=== PATIENT | female | born 1965 | race Caucasian/White ===

== ENCOUNTER 2017-02-19 18:32 | Emergency (ER) | payer MEDICARE, MEDICAID ==
[~2017-02-19] VITALS: Ht 160 cm; Wt 139.0 kg
[~2017-02-19 18:32] MED LIST: ACET-75 PO; ALBU8.5H8 IH; AZI25OT PO; BACL10TA PO; DOCU100C40 PO; ESOM20CA PO; FERR-106 PO; FLUT16SP26 BOTHNARES; FLUT1AER; FORM20VI NEB; FURO-149 PO; GABA600T2 PO; INSU100V36 SQ; LANTUS SQ; LEVO50TA8 PO; LEVO750T46 PO; LISI2.5T2 PO; LORA10TA61 PO; METF10002 PO; METO25TA6 PO; POTA10CA44 PO; PRED20TA PO; SIMV20TA PO
[2017-02-19 19:02] LABS: BASOPHILS % (AUTO) 0.3 % (0-1); EOSINOPHILS # (AUTO) 0.2 X10'3 (0-0.9); EOSINOPHILS % (AUTO) 1.7 % (0-6); HEMATOCRIT 40.3 % (35.0-45.0); HEMOGLOBIN 13.4 g/dl (12.0-16.0); LYMPHOCYTES # (AUTO) 2.6 X10'3 (1.1-4.8); LYMPHOCYTES % (AUTO) 29.1 % (21-51); MEAN CORPUSCULAR HEMOGLOBIN 27.7 PG (27.0-31.0); MEAN CORPUSCULAR HGB CONC 33.3 % (33.0-36.5); MEAN CORPUSCULAR VOLUME 83.3 FL (78-98); MONOCYTES # (AUTO) 0.8 X10'3 (0-0.9); MONOCYTES % (AUTO) 9.4 % (2-12); NEUTROPHILS # (AUTO) 5.4 X10'3 (1.8-7.7); NEUTROPHILS % (AUTO) 59.5 % (42-75); PLATELET COUNT 353 X10'3 (140-440); RED BLOOD COUNT 4.84 X10'6 (4.20-5.60); RED CELL DISTRIBUTION WIDTH 14.3 % (11.5-14.5)
[2017-02-19 19:14] LABS: INR 0.9 INR; PARTIAL THROMBOPLASTIN TIME 26 SECONDS (22-32); PROTHROMBIN TIME 9.4 SECONDS (9.0-12.0)
[2017-02-19 19:17] LABS: ALANINE AMINOTRANSFERASE 30 U/L (12-78); ALBUMIN 3.9 G/DL (3.4-5.0); ALKALINE PHOSPHATASE 95 IU/L (46-116); ANION GAP 10 (8-16); BILIRUBIN,TOTAL 0.3 MG/DL (0.1-1.0); BLOOD UREA NITROGEN 9 MG/DL (7-18); BUN/CREATININE RATIO 10.8 (6.6-38.0); CALCIUM 9.4 MG/DL (8.5-10.1); CHLORIDE 104 MMOL/L (99-107); CREATININE 0.83 MG/DL (0.40-0.90); SODIUM 143 MMOL/L (135-145); eGFR 73 ML/MIN
[2017-02-19 19:32] LABS: ASPARTATE AMINO TRANSFERASE 20 U/L (10-37)
[2017-02-19 19:33] LABS: GLUCOSE 145 MG/DL (70-104); POTASSIUM 3.8 MMOL/L (3.5-5.1); TOTAL PROTEIN 7.8 G/DL (6.4-8.2)
[2017-02-19] MEDS ORDERED: AZIT-63 PO (21:07)
[2017-02-19] MEDS ORDERED: PRED20TA PO (21:07)
[2017-02-19] MEDS ORDERED: ipratropium/albuterol 3ml nebule NEB ONE (21:10)
[2017-02-19] MEDS ORDERED: predniSONE 20 mg tablet PO ONE (21:10)
[2017-02-19] MEDS ORDERED: azithromycin 250mg tablet PO ONE (21:10)
[2017-02-19 21:59] VITALS: BP 154/65
== END 2017-02-19 22:29 | disposition home or self-care (01) ==
LOC: ER 18:32
DX: J40 Bronchitis, not specified as acute or chronic (principal); R60.0 Localized edema; J44.9 Chronic obstructive pulmonary disease, unspecified; I10 Essential (primary) hypertension; I25.10 Atherosclerotic heart disease of native coronary artery without angina pectoris; K21.9 Gastro-esophageal reflux disease without esophagitis; E11.9 Type 2 diabetes mellitus without complications; E78.00 Pure hypercholesterolemia, unspecified; C53.9 Malignant neoplasm of cervix uteri, unspecified; I25.2 Old myocardial infarction; Z86.73 Personal history of transient ischemic attack (TIA), and cerebral infarction without residual deficits; Z90.5 Acquired absence of kidney; Z79.4 Long term (current) use of insulin; Z79.84 Long term (current) use of oral hypoglycemic drugs; Z79.899 Other long term (current) drug therapy; Z88.6 Allergy status to analgesic agent
CPT/HCPCS: 36415; 71045; 80053; 84484; 85025; 85610; 85730; 93005; 94640; 94760; 99285; J7512

== ENCOUNTER 2018-03-13 11:13 | Emergency (ER) | payer MEDICARE, MEDICAID ==
[~2018-03-13] VITALS: Ht 160 cm; Wt 145.9 kg
[~2018-03-13 11:13] MED LIST changes: -FERR-106 PO; +FERR325T32 PO; +GABA600T13 PO; -GABA600T2 PO; +METF-438 PO; -METF10002 PO
[2018-03-13 11:45] LABS: BASOPHILS % (AUTO) 0.2 % (0-1); EOSINOPHILS # (AUTO) 0.2 X10'3 (0-0.9); EOSINOPHILS % (AUTO) 2.2 % (0-6); HEMATOCRIT 38.6 % (35.0-45.0); HEMOGLOBIN 12.7 g/dl (12.0-16.0); LYMPHOCYTES # (AUTO) 2.3 X10'3 (1.1-4.8); MEAN CORPUSCULAR HEMOGLOBIN 27.9 PG (27.0-31.0); MEAN CORPUSCULAR HGB CONC 32.9 % (33.0-36.5); MEAN CORPUSCULAR VOLUME 84.6 FL (78-98); MEAN PLATELET VOLUME 7.1 FL (7.4-10.4); MONOCYTES # (AUTO) 0.7 X10'3 (0-0.9); MONOCYTES % (AUTO) 7.6 % (2-12); NEUTROPHILS # (AUTO) 6.3 X10'3 (1.8-7.7); PLATELET COUNT 326 X10'3 (140-440); RED BLOOD COUNT 4.56 X10'6 (4.20-5.60); RED CELL DISTRIBUTION WIDTH 14.4 % (11.5-14.5); WHITE BLOOD COUNT 9.6 X10'3 (4.5-11.0)
[2018-03-13 11:59] LABS: INR 0.9 INR; PARTIAL THROMBOPLASTIN TIME 28 SECONDS (22-32); PROTHROMBIN TIME 9.5 SECONDS (9.0-12.0)
[2018-03-13 12:01] LABS: ALANINE AMINOTRANSFERASE 41 U/L (12-78); ALBUMIN 3.7 G/DL (3.4-5.0); ALBUMIN/GLOBULIN RATIO 0.9 (1.1-1.5); ALKALINE PHOSPHATASE 81 IU/L (46-116); ANION GAP 11 (8-16); ASPARTATE AMINO TRANSFERASE 22 U/L (10-37); BILIRUBIN,TOTAL 0.2 MG/DL (0.1-1.0); BLOOD UREA NITROGEN 19 MG/DL (7-18); BUN/CREATININE RATIO 21.6 (6.6-38.0); CALCIUM 8.7 MG/DL (8.5-10.1); CHLORIDE 102 MMOL/L (99-107); CREATININE 0.88 MG/DL (0.40-0.90); GLUCOSE 149 MG/DL (70-104); POTASSIUM 4.3 MMOL/L (3.5-5.1); SODIUM 143 MMOL/L (135-145); TOTAL CARBON DIOXIDE 29.8 MMOL/L (24-32); TOTAL PROTEIN 7.9 G/DL (6.4-8.2); eGFR 68 ML/MIN
[2018-03-13] MEDS ORDERED: famotidine 20mg tablet PO ONE (12:35)
[2018-03-13] MEDS ORDERED: mag hydrox/Alum hydrox/simeth 30ml oral suspension PO ONE (12:35)
[2018-03-13] MEDS ORDERED: clopidogrel 300mg tablet PO ONE (12:35)
[2018-03-13 13:32] LABS: D-DIMER 0.31 MG/L FEU (0-0.50)
[2018-03-13 15:35] VITALS: BP 168/89
== END 2018-03-13 15:37 | disposition home or self-care (01) ==
LOC: ER 11:13
DX: R07.89 Other chest pain (principal); R06.02 Shortness of breath; R11.0 Nausea; J44.9 Chronic obstructive pulmonary disease, unspecified; I25.10 Atherosclerotic heart disease of native coronary artery without angina pectoris; I25.2 Old myocardial infarction; I10 Essential (primary) hypertension; E78.00 Pure hypercholesterolemia, unspecified; K21.9 Gastro-esophageal reflux disease without esophagitis; E11.9 Type 2 diabetes mellitus without complications; E07.9 Disorder of thyroid, unspecified; Z86.73 Personal history of transient ischemic attack (TIA), and cerebral infarction without residual deficits; Z98.890 Other specified postprocedural states; Z56.0 Unemployment, unspecified; Z88.5 Allergy status to narcotic agent; Z88.6 Allergy status to analgesic agent; Z88.8 Allergy status to other drugs, medicaments and biological substances; Z79.4 Long term (current) use of insulin; Z79.84 Long term (current) use of oral hypoglycemic drugs; Z79.899 Other long term (current) drug therapy
CPT/HCPCS: 36415; 71045; 80053; 84484; 85025; 85379; 85610; 85730; 93005; 99284

== ENCOUNTER 2018-04-28 21:28 | Emergency (ER) | payer MEDICARE, MEDICAID ==
[~2018-04-28] VITALS: Ht 160 cm; Wt 154.8 kg
[2018-04-28 22:10] LABS: BASOPHILS % (AUTO) 0.4 % (0-1); EOSINOPHILS # (AUTO) 0.2 X10'3 (0-0.9); EOSINOPHILS % (AUTO) 2.9 % (0-6); HEMATOCRIT 37.9 % (35.0-45.0); HEMOGLOBIN 12.6 g/dl (12.0-16.0); LYMPHOCYTES # (AUTO) 1.9 X10'3 (1.1-4.8); LYMPHOCYTES % (AUTO) 27.9 % (21-51); MEAN CORPUSCULAR HEMOGLOBIN 28.4 PG (27.0-31.0); MEAN CORPUSCULAR HGB CONC 33.3 g/dL (33.0-36.5); MEAN CORPUSCULAR VOLUME 85.4 FL (78-98); MEAN PLATELET VOLUME 7.2 FL (7.4-10.4); MONOCYTES # (AUTO) 0.6 X10'3 (0-0.9); MONOCYTES % (AUTO) 9.3 % (2-12); NEUTROPHILS % (AUTO) 59.5 % (42-75); PLATELET COUNT 243 X10'3 (140-440); RED BLOOD COUNT 4.44 X10'6 (4.20-5.60); RED CELL DISTRIBUTION WIDTH 14.6 % (11.5-14.5); WHITE BLOOD COUNT 6.8 X10'3 (4.5-11.0)
[2018-04-28 22:15] LABS: ALANINE AMINOTRANSFERASE 36 U/L (12-78); ALBUMIN 3.5 G/DL (3.4-5.0); ALKALINE PHOSPHATASE 113 IU/L (46-116); BLOOD UREA NITROGEN 19 MG/DL (7-18); BUN/CREATININE RATIO 18.8 (6.6-38.0); CHLORIDE 104 MMOL/L (99-107); CREATININE 1.01 MG/DL (0.40-0.90); TOTAL CARBON DIOXIDE 33.7 MMOL/L (24-32); eGFR 58 ML/MIN
[2018-04-28 22:21] LABS: INR 0.9 INR; PARTIAL THROMBOPLASTIN TIME 26 SECONDS (22-32); PROTHROMBIN TIME 9.5 SECONDS (9.0-12.0)
[2018-04-28 22:49] LABS: ALBUMIN/GLOBULIN RATIO 1.1 (1.1-1.5); ANION GAP 4 (8-16); ASPARTATE AMINO TRANSFERASE 21 U/L (10-37); BILIRUBIN,TOTAL 0.2 MG/DL (0.1-1.0); CALCIUM 8.8 MG/DL (8.5-10.1); GLUCOSE 158 MG/DL (70-104); POTASSIUM 4.6 MMOL/L (3.5-5.1); SODIUM 142 MMOL/L (135-145); TOTAL PROTEIN 6.8 G/DL (6.4-8.2)
[2018-04-28] MEDS ORDERED: ipratropium/albuterol 3ml nebule NEB ONE (23:30)
[2018-04-28 23:40] VITALS: BP 129/91
== END 2018-04-28 23:54 | disposition home or self-care (01) ==
LOC: ER 21:28
DX: R06.02 Shortness of breath (principal); R20.2 Paresthesia of skin; I25.10 Atherosclerotic heart disease of native coronary artery without angina pectoris; E78.00 Pure hypercholesterolemia, unspecified; I10 Essential (primary) hypertension; I25.2 Old myocardial infarction; J44.9 Chronic obstructive pulmonary disease, unspecified; K21.9 Gastro-esophageal reflux disease without esophagitis; E11.9 Type 2 diabetes mellitus without complications; Z86.73 Personal history of transient ischemic attack (TIA), and cerebral infarction without residual deficits; Z56.0 Unemployment, unspecified; Z98.890 Other specified postprocedural states; Z79.899 Other long term (current) drug therapy; Z79.4 Long term (current) use of insulin; Z88.6 Allergy status to analgesic agent; Z88.5 Allergy status to narcotic agent; Z91.041 Radiographic dye allergy status
CPT/HCPCS: 36415; 71046; 80053; 83880; 84484; 85025; 85610; 85730; 93005; 94640; 94760; 99284

== ENCOUNTER 2019-04-24 11:25 | Emergency (ER) | payer MEDICARE, MEDICAID ==
[~2019-04-24] VITALS: Ht 165.1 cm; Wt 149.1 kg
[2019-04-24 12:11] LABS: BASOPHILS % (AUTO) 0.2 % (0-1); EOSINOPHILS # (AUTO) 0.2 X10'3 (0-0.9); EOSINOPHILS % (AUTO) 2.2 % (0-6); HEMATOCRIT 40.7 % (35.0-45.0); HEMOGLOBIN 13.2 g/dl (12.0-16.0); LYMPHOCYTES # (AUTO) 1.9 X10'3 (1.1-4.8); LYMPHOCYTES % (AUTO) 19.2 % (21-51); MEAN CORPUSCULAR HEMOGLOBIN 27.4 PG (27.0-31.0); MEAN CORPUSCULAR HGB CONC 32.5 g/dL (33.0-36.5); MEAN CORPUSCULAR VOLUME 84.3 FL (78-98); MEAN PLATELET VOLUME 7.5 FL (7.4-10.4); MONOCYTES # (AUTO) 0.8 X10'3 (0-0.9); MONOCYTES % (AUTO) 7.7 % (2-12); NEUTROPHILS # (AUTO) 6.9 X10'3 (1.8-7.7); NEUTROPHILS % (AUTO) 70.7 % (42-75); PLATELET COUNT 303 X10'3 (140-440); RED BLOOD COUNT 4.83 X10'6 (4.20-5.60); RED CELL DISTRIBUTION WIDTH 13.9 % (11.5-14.5); WHITE BLOOD COUNT 9.8 X10'3 (4.5-11.0)
[2019-04-24 12:26] LABS: ALANINE AMINOTRANSFERASE 54 U/L (12-78); ALBUMIN 3.7 G/DL (3.4-5.0); ALBUMIN/GLOBULIN RATIO 0.9 (1.1-1.5); ALKALINE PHOSPHATASE 72 IU/L (46-116); ANION GAP 3 (8-16); ASPARTATE AMINO TRANSFERASE 51 U/L (10-37); BILIRUBIN,TOTAL 0.3 MG/DL (0.1-1.0); BLOOD UREA NITROGEN 9 MG/DL (7-18); CALCIUM 9.2 MG/DL (8.5-10.1); CHLORIDE 106 MMOL/L (99-107); CREATININE 0.75 MG/DL (0.40-0.90); GLUCOSE 170 MG/DL (70-104); SODIUM 142 MMOL/L (135-145); TOTAL CARBON DIOXIDE 32.6 MMOL/L (24-32); TOTAL PROTEIN 7.7 G/DL (6.4-8.2); eGFR 81 ML/MIN
[2019-04-24] MEDS ORDERED: ipratropium/albuterol 3ml nebule NEB ONE (13:10)
[2019-04-24] MEDS ORDERED: methylPREDNISolone sod succ 125mg/2ml vial IV ONE (13:10)
[2019-04-24] MEDS ORDERED: furosemide 40mg/4ml inj IV ONE (13:10)
[2019-04-24 16:06] VITALS: BP 175/92
== END 2019-04-24 16:15 | disposition home or self-care (01) ==
LOC: ER 11:26
DX: J44.1 Chronic obstructive pulmonary disease with (acute) exacerbation (principal); I25.10 Atherosclerotic heart disease of native coronary artery without angina pectoris; E78.00 Pure hypercholesterolemia, unspecified; I10 Essential (primary) hypertension; I25.2 Old myocardial infarction; G47.30 Sleep apnea, unspecified; K21.9 Gastro-esophageal reflux disease without esophagitis; E11.9 Type 2 diabetes mellitus without complications; Z85.9 Personal history of malignant neoplasm, unspecified; Z87.891 Personal history of nicotine dependence; Z86.73 Personal history of transient ischemic attack (TIA), and cerebral infarction without residual deficits; Z60.2 Problems related to living alone; Z59.0 Homelessness
CPT/HCPCS: 36415; 71045; 80053; 83880; 84484; 85025; 93005; 94640; 96374; 96375; 99285; J1940; J2930; 94760

== ENCOUNTER 2019-10-21 20:15 | Inpatient (IN) | payer MEDICARE, MEDICAID ==
[~2019-10-21] VITALS: Ht 165.1 cm; Wt 155.0 kg
[2019-10-21 20:48] LABS: BASOPHILS # (AUTO) 0.1 X10'3 (0-0.2); BASOPHILS % (AUTO) 0.9 % (0-1); EOSINOPHILS # (AUTO) 0.4 X10'3 (0-0.9); EOSINOPHILS % (AUTO) 4.1 % (0-6); HEMATOCRIT 40.6 % (35.0-45.0); HEMOGLOBIN 13.3 g/dl (12.0-16.0); LYMPHOCYTES # (AUTO) 3.6 X10'3 (1.1-4.8); LYMPHOCYTES % (AUTO) 35.6 % (21-51); MEAN CORPUSCULAR HEMOGLOBIN 27.9 PG (27.0-31.0); MEAN CORPUSCULAR HGB CONC 32.8 g/dL (33.0-36.5); MEAN CORPUSCULAR VOLUME 85.1 FL (78-98); MEAN PLATELET VOLUME 7.4 FL (7.4-10.4); MONOCYTES # (AUTO) 1.1 X10'3 (0-0.9); MONOCYTES % (AUTO) 10.4 % (2-12); PLATELET COUNT 332 X10'3 (140-440); RED BLOOD COUNT 4.77 X10'6 (4.20-5.60); RED CELL DISTRIBUTION WIDTH 13.7 % (11.5-14.5); WHITE BLOOD COUNT 10.2 X10'3 (4.5-11.0)
[2019-10-21] MEDS ORDERED: nitroGLYCERIN 0.4mg SUBLingual tab SL ONE (20:52)
[2019-10-21] MEDS ORDERED: nitroGLYCERIN 0.4mg SUBLingual tab SL PRN ×3 (20:55→21:30)
[2019-10-21 21:04] LABS: ALANINE AMINOTRANSFERASE 50 U/L (12-78); ALBUMIN 3.7 G/DL (3.4-5.0); ALBUMIN/GLOBULIN RATIO 0.9 (1.1-1.5); ALKALINE PHOSPHATASE 101 IU/L (46-116); ANION GAP 9 (8-16); ASPARTATE AMINO TRANSFERASE 24 U/L (10-37); BILIRUBIN,TOTAL 0.2 MG/DL (0.1-1.0); BLOOD UREA NITROGEN 20 MG/DL (7-18); BUN/CREATININE RATIO 20.4 (6.6-38.0); CALCIUM 9.3 MG/DL (8.5-10.1); CHLORIDE 102 MMOL/L (99-107); CREATININE 0.98 MG/DL (0.40-0.90); GLUCOSE 249 MG/DL (70-104); POTASSIUM 3.9 MMOL/L (3.5-5.1); SODIUM 139 MMOL/L (135-145); TOTAL CARBON DIOXIDE 27.8 MMOL/L (24-32); TOTAL PROTEIN 7.8 G/DL (6.4-8.2); eGFR 59 ML/MIN
[2019-10-21] MEDS ORDERED: magnesium 4gm in 100ml NS 100 ML IV PRN (21:30)
[2019-10-21] MEDS ORDERED: potassium Cl 20 mEq SR tablet PO PRN ×2 (21:30)
[2019-10-21] MEDS ORDERED: aminophylline 250mg/10ml inj. IV PRN (21:30)
[2019-10-21] MEDS ORDERED: clopidogrel 75mg tablet PO ONE (21:30)
[2019-10-21] MEDS ORDERED: dextrose 50%-water 50ml dispensing syringe IV PRN ×2 (21:30)
[2019-10-21] MEDS ORDERED: magnesium Cl slow-release 64mg tablet PO PRN (21:30)
[2019-10-21] MEDS ORDERED: MESSAGE TO PHARMACY PO ONE (21:30)
[2019-10-21] MEDS ORDERED: metoprolol tartrate 1mg/ml inj IV PRN (21:30)
[2019-10-21] MEDS ORDERED: mag hydrox/Alum hydrox/simeth 30ml oral suspension PO PRN (21:30)
[2019-10-21] MEDS ORDERED: potassium CL 10mEq/100ml bag 100 ML IV PRN ×2 (21:30)
[2019-10-21] MEDS ORDERED: magnesium 2GM in 50ml NS 50 ML IV PRN (21:30)
[2019-10-21] MEDS ORDERED: dextrose ORAL solution 15 GM/59 ML bottle PO PRN ×2 (21:30)
[2019-10-21] MEDS ORDERED: regadenoson 0.4mg/5ml syringe IV ONE (21:30)
[2019-10-21] MEDS ORDERED: magnesium hydroxide 30ml (MOM) UD suspension PO PRN (21:30)
[2019-10-21] MEDS ORDERED: ondansetron/PF 4mg/2ml inj IV PRN (21:30)
[2019-10-21] MEDS ORDERED: acetaminophen 325mg tablet PO PRN (21:30)
[2019-10-21] MEDS ORDERED: glucagon, human recombinant 1mg kit SUBCUT PRN (21:30)
[2019-10-21 21:48] LABS: HEMOGLOBIN A1C 7.5 % (4.5-6.2)
[2019-10-21] MEDS ORDERED: regadenoson 0.4mg/5ml syringe IV PRN (21:50)
[2019-10-21 23:00] VITALS: BP 128/92
[2019-10-22] VITALS (13 sets, daily range): BP systolic 111–154; BP diastolic 56–100
[2019-10-22 04:05] LABS: BASOPHILS # (AUTO) 0.1 X10'3 (0-0.2); EOSINOPHILS # (AUTO) 0.4 X10'3 (0-0.9); MEAN PLATELET VOLUME 7.9 FL (7.4-10.4); MONOCYTES # (AUTO) 1.1 X10'3 (0-0.9)
[2019-10-22 04:07] LABS: BASOPHILS % (AUTO) 1.3 % (0-1); EOSINOPHILS % (AUTO) 3.5 % (0-6); HEMATOCRIT 39.1 % (35.0-45.0); HEMOGLOBIN 13.1 g/dl (12.0-16.0); LYMPHOCYTES # (AUTO) 3.6 X10'3 (1.1-4.8); LYMPHOCYTES % (AUTO) 32.7 % (21-51); MEAN CORPUSCULAR HEMOGLOBIN 28.6 PG (27.0-31.0); MEAN CORPUSCULAR HGB CONC 33.4 g/dL (33.0-36.5); MEAN CORPUSCULAR VOLUME 85.5 FL (78-98); MONOCYTES % (AUTO) 10.3 % (2-12); NEUTROPHILS # (AUTO) 5.7 X10'3 (1.8-7.7); NEUTROPHILS % (AUTO) 52.2 % (42-75); PLATELET COUNT 271 X10'3 (140-440); RED BLOOD COUNT 4.58 X10'6 (4.20-5.60)
[2019-10-22 04:10] LABS: ALANINE AMINOTRANSFERASE 48 U/L (12-78); ALBUMIN 3.5 G/DL (3.4-5.0); ALBUMIN/GLOBULIN RATIO 0.9 (1.1-1.5); ALKALINE PHOSPHATASE 99 IU/L (46-116); ANION GAP 6 (8-16); ASPARTATE AMINO TRANSFERASE 28 U/L (10-37); BILIRUBIN,TOTAL 0.2 MG/DL (0.1-1.0); BLOOD UREA NITROGEN 18 MG/DL (7-18); BUN/CREATININE RATIO 20.5 (6.6-38.0); CALCIUM 9.3 MG/DL (8.5-10.1); CHLORIDE 102 MMOL/L (99-107); CREATININE 0.88 MG/DL (0.40-0.90); GLUCOSE 157 MG/DL (70-104); SODIUM 139 MMOL/L (135-145); TOTAL CARBON DIOXIDE 31.1 MMOL/L (24-32); TOTAL PROTEIN 7.4 G/DL (6.4-8.2); eGFR 67 ML/MIN
[2019-10-22 04:11] LABS: POTASSIUM 4.2 MMOL/L (3.5-5.1)
[2019-10-22 04:13] LABS: MAGNESIUM 1.6 MG/DL (1.5-2.4)
--- NOTE | 2019-10-22 06:29 | NUR ---
Patient in room PCU 3026. I have received report from PHILOMENA Swenson and had the opportunity to ask questions and assume patient care. Pt sleeping comfortably at change of shift.
[2019-10-22] MEDS: K and/or MAG REPLACEMENT MC SCH ×2 (08:00→20:00)
[2019-10-22] MEDS: clopidogrel 75mg tablet PO SCH (08:24)
[2019-10-22] MEDS: docusate sod 100mg capsule PO SCH ×2 (08:24→19:05)
[2019-10-22] MEDS ORDERED: MELO7.5T12 PO (11:16)
[2019-10-22] MEDS ORDERED: LISI-600 PO (11:16)
[2019-10-22] MEDS ORDERED: DULA0.75 SQ (11:16)
[2019-10-22] MEDS ORDERED: FURO40TA4 PO (11:17)
[2019-10-22] MEDS ORDERED: AZIT250T83 PO (11:18)
--- NOTE | 2019-10-22 12:26 | NUR ---
Paged Dr Kim regarding Simona being resulted. PAGER ID: [phone] MESSAGE: Re: Pauly Ba [id number] Simona has resulted, please advise if pt can eat lunch. Thanks Lea Wei [phone]
[2019-10-22] MEDS ORDERED: docusate sod 100mg capsule PO PRN (13:50)
[2019-10-22] MEDS ORDERED: ALBUTEROL INHALER 1 PUFF/90 MCG INHALER IH PRN (13:50)
[2019-10-22] MEDS: furosemide 40mg/4ml inj IV SCH ×3 (15:18→23:00)
[2019-10-22] MEDS: gabapentin 300mg capsule PO SCH ×2 (15:18→23:04)
--- NOTE | 2019-10-22 16:06 | NUR ---
DM consult, A1c 7.5%; met at bedside and given written DM education handout with verbal review. Pt reports her A1c is usually under 6% however recently had a change in her medications, stated she will d/w her PCP. Addendum: 10/22/19 at [address] Amended: Links added.
[2019-10-22] MEDS: albuterol 2.5 MG/3 ML nebule NEB PRN (16:54)
[2019-10-22] MEDS: baclofen 10mg tablet PO PRN (17:41)
--- NOTE | 2019-10-22 18:15 | NUR ---
Problems reprioritized. Patient report given, questions answered & plan of care reviewed with PHILOMENA Lewis. Pt sitting up eating dinner at change of shift, all pt needs met at this time.
[2019-10-22] MEDS: insulin Lispro (HumaLOG) vial - multi-dose SQ SCH (18:59)
[2019-10-22] MEDS: enoxaparin 40mg/0.4ml syringe SUBCUT SCH (19:07)
[2019-10-22] MEDS: acetaminophen 325mg tablet PO SCH (19:10)
[2019-10-22] MEDS: budesonide 0.5mg/2ml UD nebule IH SCH (19:50)
[2019-10-22] MEDS ORDERED: non-formulary drug (Meloxicam (Mobic) 1 TAB) PO SCH (20:00)
[2019-10-22] MEDS: insulin glargine (Lantus) pen - multi-dose SQ SCH (21:06)
[2019-10-22] MEDS: atorvastatin 10mg tablet PO SCH (21:07)
[2019-10-23 02:08] VITALS: BP 130/92
[2019-10-23 05:13] LABS: BASOPHILS % (AUTO) 0.4 % (0-1); EOSINOPHILS # (AUTO) 0.2 X10'3 (0-0.9); EOSINOPHILS % (AUTO) 2.7 % (0-6); HEMATOCRIT 37.8 % (35.0-45.0); HEMOGLOBIN 12.4 g/dl (12.0-16.0); LYMPHOCYTES # (AUTO) 2.2 X10'3 (1.1-4.8); LYMPHOCYTES % (AUTO) 26.9 % (21-51); MEAN CORPUSCULAR HEMOGLOBIN 28.2 PG (27.0-31.0); MEAN CORPUSCULAR HGB CONC 32.8 g/dL (33.0-36.5); MEAN CORPUSCULAR VOLUME 86.1 FL (78-98); MEAN PLATELET VOLUME 7.7 FL (7.4-10.4); MONOCYTES # (AUTO) 0.9 X10'3 (0-0.9); MONOCYTES % (AUTO) 10.7 % (2-12); NEUTROPHILS # (AUTO) 4.9 X10'3 (1.8-7.7); NEUTROPHILS % (AUTO) 59.3 % (42-75); PLATELET COUNT 285 X10'3 (140-440); RED BLOOD COUNT 4.39 X10'6 (4.20-5.60); WHITE BLOOD COUNT 8.3 X10'3 (4.5-11.0)
[2019-10-23 05:29] LABS: ALANINE AMINOTRANSFERASE 47 U/L (12-78); ALBUMIN 3.4 G/DL (3.4-5.0); ALBUMIN/GLOBULIN RATIO 0.9 (1.1-1.5); ALKALINE PHOSPHATASE 67 IU/L (46-116); ANION GAP 6 (8-16); ASPARTATE AMINO TRANSFERASE 29 U/L (10-37); BILIRUBIN,TOTAL 0.3 MG/DL (0.1-1.0); BLOOD UREA NITROGEN 20 MG/DL (7-18); BUN/CREATININE RATIO 19.6 (6.6-38.0); CALCIUM 8.8 MG/DL (8.5-10.1); CHLORIDE 99 MMOL/L (99-107); CREATININE 1.02 MG/DL (0.40-0.90); GLUCOSE 183 MG/DL (70-104); MAGNESIUM 1.6 MG/DL (1.5-2.4); POTASSIUM 3.7 MMOL/L (3.5-5.1); SODIUM 137 MMOL/L (135-145); TOTAL CARBON DIOXIDE 32.1 MMOL/L (24-32); TOTAL PROTEIN 7.2 G/DL (6.4-8.2); eGFR 57 ML/MIN
--- NOTE | 2019-10-23 06:15 | NUR ---
Problems reprioritized. Patient report given, questions answered & plan of care reviewed with Lea QUACH
--- NOTE | 2019-10-23 06:23 | NUR ---
Patient in room PCU 3026. I have received report from Joshua QUACH and had the opportunity to ask questions and assume patient care.
[2019-10-23 07:00] VITALS: BP 145/77
[2019-10-23] MEDS: albuterol 2.5 MG/3 ML nebule NEB PRN (07:31)
[2019-10-23] MEDS: budesonide 0.5mg/2ml UD nebule IH SCH ×2 (07:31→21:04)
[2019-10-23] MEDS ORDERED: ferrous sulfate 325mg tablet PO SCH (08:00)
[2019-10-23] MEDS: K and/or MAG REPLACEMENT MC SCH ×2 (08:00→20:00)
[2019-10-23] MEDS: potassium chloride 10mEq ER tablet PO SCH (08:21)
[2019-10-23] MEDS: metoprolol tartrate 25mg tablet PO SCH (08:21)
[2019-10-23] MEDS: lisinopril 20mg tablet PO SCH (08:21)
[2019-10-23] MEDS: acetaminophen 325mg tablet PO SCH ×2 (08:21→19:45)
[2019-10-23] MEDS: pantoprazole 40mg Tablet.DR PO SCH (08:21)
[2019-10-23] MEDS: gabapentin 300mg capsule PO SCH ×3 (08:22→23:15)
[2019-10-23] MEDS: docusate sod 100mg capsule PO SCH ×2 (08:22→19:44)
[2019-10-23] MEDS: furosemide 40mg/4ml inj IV SCH ×3 (08:22→23:16)
[2019-10-23] MEDS: loratadine 10mg tablet PO SCH (08:22)
[2019-10-23] MEDS: clopidogrel 75mg tablet PO SCH (08:22)
[2019-10-23] MEDS: levoTHYROXINE 25mcg tablet PO SCH (08:28)
[2019-10-23] MEDS: insulin Lispro (HumaLOG) vial - multi-dose SQ SCH ×3 (08:47→19:41)
--- NOTE | 2019-10-23 09:43 | NUR ---
Dr. Kim at bedside with patient and Nurse. Pt requested to stay another night to make sure she was able to get more fluid off her and monitor for any chest pain. Will continue to monitor.
[2019-10-23 11:00] VITALS: BP 106/58
[2019-10-23] MEDS: baclofen 10mg tablet PO PRN (16:29)
--- NOTE | 2019-10-23 18:01 | NUR ---
Problems reprioritized. Patient report given, questions answered & plan of care reviewed with Joshua RN.
[2019-10-23 19:00] VITALS: BP 127/81
[2019-10-23] MEDS: enoxaparin 40mg/0.4ml syringe SUBCUT SCH (19:44)
[2019-10-23] MEDS: atorvastatin 10mg tablet PO SCH (19:45)
[2019-10-23] MEDS: insulin glargine (Lantus) pen - multi-dose SQ SCH (21:37)
[2019-10-23 23:00] VITALS: BP 120/72
--- NOTE | 2019-10-24 06:19 | NUR ---
Problems reprioritized. Patient report given, questions answered & plan of care reviewed with Lea Bennett
[2019-10-24 07:00] VITALS: BP 115/71
--- NOTE | 2019-10-24 07:12 | NUR ---
Patient in room PCU 3026. I have received report from Joshua QUACH and had the opportunity to ask questions and assume patient care.
[2019-10-24 07:29] LABS: BASOPHILS % (AUTO) 0.5 % (0-1); EOSINOPHILS # (AUTO) 0.3 X10'3 (0-0.9); HEMATOCRIT 40.3 % (35.0-45.0); HEMOGLOBIN 13.2 g/dl (12.0-16.0); LYMPHOCYTES # (AUTO) 2.3 X10'3 (1.1-4.8); LYMPHOCYTES % (AUTO) 27.6 % (21-51); MEAN CORPUSCULAR HEMOGLOBIN 27.9 PG (27.0-31.0); MEAN CORPUSCULAR HGB CONC 32.7 g/dL (33.0-36.5); MEAN CORPUSCULAR VOLUME 85.2 FL (78-98); MEAN PLATELET VOLUME 7.9 FL (7.4-10.4); MONOCYTES # (AUTO) 0.8 X10'3 (0-0.9); MONOCYTES % (AUTO) 10.1 % (2-12); NEUTROPHILS # (AUTO) 4.9 X10'3 (1.8-7.7); NEUTROPHILS % (AUTO) 58.8 % (42-75); PLATELET COUNT 305 X10'3 (140-440); RED BLOOD COUNT 4.72 X10'6 (4.20-5.60); RED CELL DISTRIBUTION WIDTH 13.8 % (11.5-14.5); WHITE BLOOD COUNT 8.3 X10'3 (4.5-11.0)
[2019-10-24] MEDS ORDERED: ferrous sulfate 325mg tablet PO SCH (07:30)
[2019-10-24] MEDS: K and/or MAG REPLACEMENT MC SCH (08:00)
[2019-10-24 08:20] LABS: ALANINE AMINOTRANSFERASE 51 U/L (12-78); ALBUMIN 3.4 G/DL (3.4-5.0); ALBUMIN/GLOBULIN RATIO 0.9 (1.1-1.5); ALKALINE PHOSPHATASE 70 IU/L (46-116); ANION GAP 8 (8-16); ASPARTATE AMINO TRANSFERASE 37 U/L (10-37); BILIRUBIN,TOTAL 0.3 MG/DL (0.1-1.0); BLOOD UREA NITROGEN 26 MG/DL (7-18); BUN/CREATININE RATIO 28.6 (6.6-38.0); CALCIUM 9.1 MG/DL (8.5-10.1); CHLORIDE 97 MMOL/L (99-107); CREATININE 0.91 MG/DL (0.40-0.90); GLUCOSE 192 MG/DL (70-104); MAGNESIUM 1.7 MG/DL (1.5-2.4); POTASSIUM 3.7 MMOL/L (3.5-5.1); SODIUM 135 MMOL/L (135-145); TOTAL CARBON DIOXIDE 30.3 MMOL/L (24-32); TOTAL PROTEIN 7.3 G/DL (6.4-8.2); eGFR 65 ML/MIN
[2019-10-24] MEDS: pantoprazole 40mg Tablet.DR PO SCH (08:25)
[2019-10-24] MEDS: docusate sod 100mg capsule PO SCH (08:25)
[2019-10-24] MEDS: metoprolol tartrate 25mg tablet PO SCH (08:25)
[2019-10-24] MEDS: albuterol 2.5 MG/3 ML nebule NEB PRN (08:25)
[2019-10-24] MEDS: furosemide 40mg/4ml inj IV SCH (08:25)
[2019-10-24] MEDS: budesonide 0.5mg/2ml UD nebule IH SCH (08:25)
[2019-10-24] MEDS: clopidogrel 75mg tablet PO SCH (08:26)
[2019-10-24] MEDS: lisinopril 20mg tablet PO SCH (08:26)
[2019-10-24] MEDS: acetaminophen 325mg tablet PO SCH (08:26)
[2019-10-24] MEDS: gabapentin 300mg capsule PO SCH (08:26)
[2019-10-24] MEDS: baclofen 10mg tablet PO PRN (08:26)
[2019-10-24] MEDS: potassium chloride 10mEq ER tablet PO SCH (08:26)
[2019-10-24] MEDS: loratadine 10mg tablet PO SCH (08:26)
[2019-10-24] MEDS: levoTHYROXINE 25mcg tablet PO SCH (08:26)
[2019-10-24] MEDS: insulin Lispro (HumaLOG) vial - multi-dose SQ SCH (08:35)
--- NOTE | 2019-10-24 10:10 | NUR ---
Dr. Duncan at bedside with patient and Nurse. MD has approved pt to be discharged. Follow is needed for possible sleep study and to confirm patient oxygen technology is working appropriately. Also education on diabetes and controlling blood sugars. Will continue to monitor.
[2019-10-24] MEDS ORDERED: FURO40TA4 PO (10:11)
--- NOTE | 2019-10-24 12:24 | NUR ---
Patient OK to discharge per MD orders. PIV was removed and tele removed and returned. All items were collected and sent with patient. All discharge instructions were given and relayed. Prescriptions and medication were gone over and patient is aware to follow up with PCP within one week to make sure medications are OK. Patient was able to transfer into wheelchair and transported via wheelchair to [facility] where patient drove self. Patient was handed discharge packet and a copy of a signed consent stating they understood and received instructions.
== END 2019-10-24 12:30 | disposition home or self-care (01) | DRG 292 ==
LOC: ER 20:16 → ED HOLD 21:26 → PCU 3S 22:35 → OBSVTOIN 10-23 10:30
PROVIDERS: ADMIT Family Medicine; ATTEND Internal Medicine
PROC: 4A02XM4 Measurement of Cardiac Total Activity, External Approach (ICD-10-PCS; principal; 2019-10-22)
PROC: 3E073KZ Introduction of Other Diagnostic Substance into Coronary Artery, Percutaneous Approach (ICD-10-PCS; 2019-10-22)
DX: I50.813 Acute on chronic right heart failure (principal); J44.1 Chronic obstructive pulmonary disease with (acute) exacerbation; Z68.43 Body mass index [BMI] 50.0-59.9, adult; I11.0 Hypertensive heart disease with heart failure; E11.9 Type 2 diabetes mellitus without complications; E66.01 Morbid (severe) obesity due to excess calories; E78.00 Pure hypercholesterolemia, unspecified; K21.9 Gastro-esophageal reflux disease without esophagitis; G47.33 Obstructive sleep apnea (adult) (pediatric); I27.81 Cor pulmonale (chronic); N28.9 Disorder of kidney and ureter, unspecified; R00.0 Tachycardia, unspecified; I25.2 Old myocardial infarction; Z79.4 Long term (current) use of insulin; Z79.84 Long term (current) use of oral hypoglycemic drugs; Z79.899 Other long term (current) drug therapy; Z85.41 Personal history of malignant neoplasm of cervix uteri; Z86.73 Personal history of transient ischemic attack (TIA), and cerebral infarction without residual deficits; Z87.891 Personal history of nicotine dependence; Z90.5 Acquired absence of kidney; Z88.8 Allergy status to other drugs, medicaments and biological substances
CPT/HCPCS: 36415; 71045; 78452; 80053; 82948; 83036; 83735; 83880; 84484; 85025; 87081; 93005; 93017; 93306; 94640; 94760; 99285; A9500; G0378; J1650; J1815; J1940; J2785; J7626

== ENCOUNTER → 2020-09-22 | Emergency (ER) | payer MEDICARE, MEDICAID ==
[~2020-09-22] VITALS: Ht 160 cm; Wt 155.0 kg
[~2020-09-22] MED LIST changes: +ALBU8.5H17 IH; -ALBU8.5H8 IH; -AZI25OT PO; +AZIT250T83 PO; +CEPH250T PO; +CefTRIAXone/D5W-Rocephin 1gm 50 ML IV ONE; +DULA0.75 SQ; -FORM20VI NEB; -FURO-149 PO; +FURO40TA4 PO; -INSU100V36 SQ; -LEVO750T46 PO; -LISI2.5T2 PO; +LISI20TA28 PO; +LOP25T PO; +MELO7.5T12 PO; -METO25TA6 PO; +albuterol 2.5 MG/3 ML nebule NEB ONE; +dexamethasone sod phosphate 10mg/ml inj IV STA; +insulin regular, human 10 units/0.1 ml syringe SQ ONE; +normal saline 1000ML IV soln IVB ONE; +triamcinolone acetonide 40mg/ml inj IM ONE
--- NOTE | 2020-09-22 16:16 | NUR ---
stroke alert called of by Dr Scales
[2020-09-22 16:46] LABS: ALANINE AMINOTRANSFERASE 34 U/L (12-78); ALBUMIN 3.9 G/DL (3.4-5.0); ALKALINE PHOSPHATASE 97 IU/L (46-116); ANION GAP 12 (8-16); ASPARTATE AMINO TRANSFERASE 18 U/L (10-37); BILIRUBIN,TOTAL 0.3 MG/DL (0.1-1.0); BLOOD UREA NITROGEN 40 MG/DL (7-18); BUN/CREATININE RATIO 22.9 (6.6-38.0); C-REACTIVE PROTEIN 0.61 MG/DL (0.0-0.5); CALCIUM 8.5 MG/DL (8.5-10.1); CHLORIDE 102 MMOL/L (99-107); CREATININE 1.75 MG/DL (0.40-0.90); GLUCOSE 129 MG/DL (70-104); POTASSIUM 5.2 MMOL/L (3.5-5.1); SODIUM 140 MMOL/L (135-145); TOTAL CARBON DIOXIDE 26.3 MMOL/L (24-32); TOTAL PROTEIN 7.7 G/DL (6.4-8.2); eGFR 30 ML/MIN
[2020-09-22 17:18] LABS: BASOPHILS % (AUTO) 0.3 % (0-1); EOSINOPHILS # (AUTO) 0.2 X10'3 (0-0.9); EOSINOPHILS % (AUTO) 1.8 % (0-6); HEMATOCRIT 40.4 % (35.0-45.0); HEMOGLOBIN 13.2 g/dl (12.0-16.0); LYMPHOCYTES # (AUTO) 3.3 X10'3 (1.1-4.8); LYMPHOCYTES % (AUTO) 25.6 % (21-51); MEAN CORPUSCULAR HEMOGLOBIN 28.4 PG (27.0-31.0); MEAN CORPUSCULAR HGB CONC 32.6 g/dL (33.0-36.5); MEAN PLATELET VOLUME 8.4 FL (7.4-10.4); MONOCYTES # (AUTO) 1.1 X10'3 (0-0.9); MONOCYTES % (AUTO) 8.6 % (2-12); NEUTROPHILS # (AUTO) 8.2 X10'3 (1.8-7.7); NEUTROPHILS % (AUTO) 63.7 % (42-75); PLATELET COUNT 288 X10'3 (140-440); RED BLOOD COUNT 4.64 X10'6 (4.20-5.60); RED CELL DISTRIBUTION WIDTH 14.2 % (11.5-14.5); WHITE BLOOD COUNT 12.9 X10'3 (4.5-11.0)
[2020-09-22 17:52] VITALS: BP 123/92
--- NOTE | 2020-09-22 18:30 | NUR ---
Note undone in ED - 09/22/20 at 1852 by HLAIRD First interaction with pt for adm. medication. Pt resting, breathing even and easy. blood sugar 108. Insulin ordered per Md Scales. Not admin. at this time. Scales notified hold insulin now, recheck BS at discharge after fluid NS 1L, then reassess for insulin adm.
--- NOTE | 2020-09-22 18:53 | NUR ---
First interaction with pt for adm. medication. Pt resting, breathing even and easy. blood sugar 108. Insulin ordered per Md Scales. Not admin. at this time. Yordy notified hold insulin now, recheck BS at discharge after fluid NS 1L, then reassess for insulin adm.
[2020-09-22 21:18] LABS: CLARITY,URINE SLIGHTLY CLOUDY (Clear); COLOR,URINE YELLOW (Yellow); GLUCOSE, URINE NEGATIVE (Neg); KETONES,URINE NEGATIVE (Neg); LEUKOCYTE ESTERASE ,URINE MODERATE (Neg); NITRITES, URINE NEGATIVE (Neg); OCCULT BLOOD,URINE TRACE-INTACT (Neg); PROTEIN,URINE NEGATIVE (Neg); UROBILINOGEN,URINE 0.2 E.U/dL (0.2-1.0)
[2020-09-22 21:27] LABS: UA COLLECTION TYPE CLN CATCH MIDSTREAM
[2020-09-22 21:28] LABS: WBC,URINE 20-30 /HPF (0-4)
[2020-09-22 21:29] LABS: BACTERIA,URINE NONE SEEN /HPF (Neg); RBC,URINE 0-2 /HPF (0-2); RENAL CELLS, URINE FEW /HPF; SQUAMOUS EPITHELIAL CELL,UR NONE SEEN /LPF (FEW)
== END | disposition home or self-care (01) ==
LOC: ER 15:28
DX: G51.0 Bell's palsy (principal); N17.9 Acute kidney failure, unspecified; N39.0 Urinary tract infection, site not specified; R20.0 Anesthesia of skin; R53.1 Weakness; I25.10 Atherosclerotic heart disease of native coronary artery without angina pectoris; E78.00 Pure hypercholesterolemia, unspecified; I10 Essential (primary) hypertension; I25.2 Old myocardial infarction; J44.9 Chronic obstructive pulmonary disease, unspecified; K21.9 Gastro-esophageal reflux disease without esophagitis; E11.9 Type 2 diabetes mellitus without complications; Z86.73 Personal history of transient ischemic attack (TIA), and cerebral infarction without residual deficits; Z86.2 Personal history of diseases of the blood and blood-forming organs and certain disorders involving the immune mechanism; Z85.41 Personal history of malignant neoplasm of cervix uteri; Z98.890 Other specified postprocedural states; Z60.2 Problems related to living alone; Z56.0 Unemployment, unspecified; Z88.5 Allergy status to narcotic agent; Z88.8 Allergy status to other drugs, medicaments and biological substances; Z79.2 Long term (current) use of antibiotics; Z79.4 Long term (current) use of insulin; Z79.899 Other long term (current) drug therapy
CPT/HCPCS: 36415; 71045; 80053; 81001; 82948; 83735; 84484; 85025; 85651; 86140; 87077; 87088; 93005; 96361; 96372; 96374; 96375; 99285; J0696; J1100; J3301; J7030; 94760

== ENCOUNTER 2020-10-12 09:44 | Inpatient (IN) | payer MEDICARE, MEDICAID ==
[~2020-10-12] VITALS: Ht 165.1 cm; Wt 140.0 kg
[~2020-10-12 09:44] MED LIST changes: -CEPH250T PO; -CefTRIAXone/D5W-Rocephin 1gm 50 ML IV ONE; -FLUT1AER; +FLUT1AER INH; -PRED20TA PO; -albuterol 2.5 MG/3 ML nebule NEB ONE; -dexamethasone sod phosphate 10mg/ml inj IV STA; +diatr meglu/diatrizoate 30ml oral sol.-(3 dose) bottle ONE; -insulin regular, human 10 units/0.1 ml syringe SQ ONE; -normal saline 1000ML IV soln IVB ONE; -triamcinolone acetonide 40mg/ml inj IM ONE
[2020-10-12 10:57] LABS: BASOPHILS % (AUTO) 0.2 % (0-1); EOSINOPHILS # (AUTO) 0.1 X10'3 (0-0.9); EOSINOPHILS % (AUTO) 0.5 % (0-6); HEMATOCRIT 44.7 % (35.0-45.0); HEMOGLOBIN 14.5 g/dl (12.0-16.0); LYMPHOCYTES # (AUTO) 3.4 X10'3 (1.1-4.8); LYMPHOCYTES % (AUTO) 20.8 % (21-51); MEAN CORPUSCULAR HEMOGLOBIN 28.3 PG (27.0-31.0); MEAN CORPUSCULAR HGB CONC 32.4 g/dL (33.0-36.5); MEAN CORPUSCULAR VOLUME 87.5 FL (78-98); MEAN PLATELET VOLUME 7.8 FL (7.4-10.4); MONOCYTES # (AUTO) 1.3 X10'3 (0-0.9); NEUTROPHILS # (AUTO) 11.6 X10'3 (1.8-7.7); NEUTROPHILS % (AUTO) 70.5 % (42-75); PLATELET COUNT 376 X10'3 (140-440); RED BLOOD COUNT 5.11 X10'6 (4.20-5.60); RED CELL DISTRIBUTION WIDTH 14.6 % (11.5-14.5); WHITE BLOOD COUNT 16.4 X10'3 (4.5-11.0)
[2020-10-12 11:15] LABS: ALANINE AMINOTRANSFERASE 39 U/L (12-78); ALKALINE PHOSPHATASE 81 IU/L (46-116); ANION GAP 13 (8-16); ASPARTATE AMINO TRANSFERASE 20 U/L (10-37); BILIRUBIN,TOTAL 0.3 MG/DL (0.1-1.0); BLOOD UREA NITROGEN 33 MG/DL (7-18); BUN/CREATININE RATIO 13.3 (6.6-38.0); CALCIUM 9.2 MG/DL (8.5-10.1); CHLORIDE 100 MMOL/L (99-107); CREATININE 2.49 MG/DL (0.40-0.90); GLUCOSE 213 MG/DL (70-104); LIPASE 239 U/L (73-393); MAGNESIUM 2.2 MG/DL (1.5-2.4); POTASSIUM 4.3 MMOL/L (3.5-5.1); SODIUM 140 MMOL/L (135-145); TOTAL CARBON DIOXIDE 27.1 MMOL/L (24-32); TOTAL PROTEIN 8.2 G/DL (6.4-8.2); eGFR 20 ML/MIN
[2020-10-12] MEDS ORDERED: acetaminophen 325mg tablet PO STA (11:51)
[2020-10-12] MEDS ORDERED: normal saline 1000ML IV soln IV ONE (11:55)
[2020-10-12] MEDS ORDERED: CefTRIAXone 2gm/D5W 50ml BAG 50 ML IV ONE (11:55)
[2020-10-12] MEDS ORDERED: fentaNYL/PF 50MCG/1 ML 2ML syringe IV ONE (11:55)
[2020-10-12 13:17] LABS: CLARITY,URINE CLOUDY (Clear); GLUCOSE, URINE NEGATIVE (Neg); KETONES,URINE TRACE mg/dl (Neg); LEUKOCYTE ESTERASE ,URINE NEGATIVE (Neg); NITRITES, URINE NEGATIVE (Neg); OCCULT BLOOD,URINE NEGATIVE (Neg); PROTEIN,URINE NEGATIVE (Neg); UROBILINOGEN,URINE 0.2 E.U/dL (0.2-1.0)
[2020-10-12 13:39] LABS: COLOR,URINE DARK YELLOW (Yellow); UA COLLECTION TYPE STRAIGHT CATH
[2020-10-12 13:41] LABS: AMORPHOUS URATES 3+; BACTERIA,URINE FEW /HPF (Neg); MUCUS STRANDS FEW /LPF (Neg); RBC,URINE 0-2 /HPF (0-2); SQUAMOUS EPITHELIAL CELL,UR FEW /LPF (FEW); WBC,URINE 0-4 /HPF (0-4)
[2020-10-12 13:42] LABS: HYALINE CASTS 0-3 /LPF (NEGATIVE)
[2020-10-12] MEDS ORDERED: vancomycin 250MG/10ML UD oral solution 10ML BOTTLE PO STA (13:55)
--- NOTE | 2020-10-12 13:55 | NUR ---
relieving RN for break, pt is resting quietly on gurney, aware of plan to admit to hospital, talking full sentences, no resp distress, skin p/w/d
[2020-10-12] MEDS ORDERED: vancomycin 125mg/5ml ORAL solution 5ml UD bottle PO STA (14:14)
[2020-10-12] MEDS ORDERED: insulin Lispro (HumaLOG) vial - multi-dose SQ SCH (14:15)
[2020-10-12] MEDS ORDERED: ondansetron/PF 4mg/2ml inj IV PRN (14:15)
[2020-10-12] MEDS ORDERED: dextrose 50%-water 50ml dispensing syringe IV PRN ×2 (14:15)
[2020-10-12] MEDS ORDERED: glucagon, human recombinant 1mg kit SUBCUT PRN (14:15)
[2020-10-12] MEDS ORDERED: mag hydrox/Alum hydrox/simeth 30ml oral suspension PO PRN (14:15)
[2020-10-12] MEDS ORDERED: acetaminophen 325mg tablet PO PRN ×2 (14:15)
[2020-10-12] MEDS ORDERED: dextrose ORAL solution 15 GM/59 ML bottle PO PRN ×2 (14:15)
[2020-10-12] MEDS ORDERED: magnesium hydroxide 30ml (MOM) UD suspension PO PRN (14:15)
[2020-10-12] MEDS ORDERED: MESSAGE TO PHARMACY PO ONE (14:15)
[2020-10-12] MEDS: normal saline 1000ml 1,000 ML IV SCH ×2 (14:37→23:45)
[2020-10-12] MEDS ORDERED: OMEP40CA21 PO (15:05)
[2020-10-12] MEDS ORDERED: LORA10TA7 PO (15:05)
[2020-10-12] MEDS ORDERED: FURO40TA4 PO (15:05)
[2020-10-12 15:39] LABS: HEMOGLOBIN A1C 6.9 % (4.5-6.2)
[2020-10-12] MEDS: HYDROcodone/acetaminophen 10/325mg tab PO PRN ×2 (15:56→21:36)
[2020-10-12] MEDS ORDERED: docusate sod 100mg capsule PO PRN (16:30)
[2020-10-12] MEDS ORDERED: albuterol 2.5 MG/3 ML nebule NEB PRN ×2 (16:30→21:30)
--- NOTE | 2020-10-12 16:32 | NUR ---
patient with one episode of diarrhea before admission. Ok to dc cdiff order per dr. van
[2020-10-12] MEDS: docusate sod 100mg capsule PO SCH (18:17)
[2020-10-12] MEDS: budesonide 0.5mg/2ml UD nebule IH SCH (19:19)
--- NOTE | 2020-10-12 19:24 | NUR ---
Received report from Israel QUACH in the ER. Pt arrived on the unit via gurney and was able to ambulate to her bed. Pt was on room air, NS running @ 100 mls/hr and carrying her belongings. Pt has no signs of distress, will continue to monitor.
[2020-10-12] MEDS ORDERED: TIZA4TAB5 PO (20:24)
[2020-10-12] MEDS: insulin glargine (Lantus) pen - multi-dose SQ SCH (21:00)
[2020-10-12 21:06] VITALS: BP 125/73
[2020-10-12] MEDS: heparin, porcine 5000 units/ml vial SQ SCH (21:34)
[2020-10-12] MEDS: atorvastatin 10mg tablet PO SCH (21:35)
[2020-10-12] MEDS: baclofen 10mg tablet PO PRN (21:36)
[2020-10-12] MEDS: gabapentin 300mg capsule PO SCH (21:36)
[2020-10-12] MEDS: ipratropium/albuterol 3ml nebule NEB PRN (21:59)
[2020-10-13 06:49] LABS: ALBUMIN 3.4 G/DL (3.4-5.0); ANION GAP 12 (8-16); BASOPHILS % (AUTO) 0.4 % (0-1); BLOOD UREA NITROGEN 29 MG/DL (7-18); BUN/CREATININE RATIO 25.7 (6.6-38.0); CALCIUM 8.7 MG/DL (8.5-10.1); CHLORIDE 105 MMOL/L (99-107); CREATININE 1.13 MG/DL (0.40-0.90); EOSINOPHILS # (AUTO) 0.1 X10'3 (0-0.9); EOSINOPHILS % (AUTO) 1.4 % (0-6); GLUCOSE 124 MG/DL (70-104); HEMATOCRIT 41.3 % (35.0-45.0); HEMOGLOBIN 13.3 g/dl (12.0-16.0); LYMPHOCYTES # (AUTO) 2.2 X10'3 (1.1-4.8); LYMPHOCYTES % (AUTO) 23.8 % (21-51); MEAN CORPUSCULAR HEMOGLOBIN 28.4 PG (27.0-31.0); MEAN CORPUSCULAR HGB CONC 32.3 g/dL (33.0-36.5); MEAN PLATELET VOLUME 7.9 FL (7.4-10.4); MONOCYTES # (AUTO) 0.9 X10'3 (0-0.9); MONOCYTES % (AUTO) 9.7 % (2-12); NEUTROPHILS % (AUTO) 64.7 % (42-75); PLATELET COUNT 267 X10'3 (140-440); POTASSIUM 4.2 MMOL/L (3.5-5.1); RED CELL DISTRIBUTION WIDTH 14.4 % (11.5-14.5); SODIUM 141 MMOL/L (135-145); TOTAL CARBON DIOXIDE 24.3 MMOL/L (24-32); WHITE BLOOD COUNT 9.3 X10'3 (4.5-11.0); eGFR 50 ML/MIN
--- NOTE | 2020-10-13 06:55 | NUR ---
Problems reprioritized. Patient report given, questions answered & plan of care reviewed with Janeen QUACH.
[2020-10-13 07:00] VITALS: BP 116/47
--- NOTE | 2020-10-13 07:00 | NUR ---
Patient in room [facility] 349. I have received report from Eden QUACH and had the opportunity to ask questions and assume patient care.
--- NOTE | 2020-10-13 07:53 | NUR ---
DM consult: Pt with A1c 6.9%, DM education not warranted at this time. Will continue to follow. Addendum: 10/13/20 at [address] Amended: Links added.
[2020-10-13] MEDS ORDERED: budesonide 0.5mg/2ml UD nebule IH SCH (08:00)
[2020-10-13] MEDS: budesonide 0.5mg/2ml UD nebule IH SCH ×2 (08:48→19:11)
[2020-10-13] MEDS: gabapentin 300mg capsule PO SCH ×2 (08:57→15:31)
[2020-10-13] MEDS: docusate sod 100mg capsule PO SCH ×2 (08:57→19:37)
[2020-10-13] MEDS: levoTHYROXINE 25mcg tablet PO SCH (08:58)
[2020-10-13] MEDS: HYDROcodone/acetaminophen 5mg/325mg tablet PO PRN ×2 (08:58→15:32)
[2020-10-13] MEDS: heparin, porcine 5000 units/ml vial SQ SCH ×2 (08:59→19:39)
[2020-10-13] MEDS: pantoprazole 40mg Tablet.DR PO SCH (08:59)
[2020-10-13] MEDS: normal saline 1000ml 1,000 ML IV SCH ×2 (09:02→17:34)
[2020-10-13 11:00] VITALS: BP 138/51
[2020-10-13] MEDS: loratadine 10mg tablet PO SCH (15:32)
--- NOTE | 2020-10-13 18:30 | NUR ---
Patient in room [facility] 349. I have received report from Janeen QUACH and had the opportunity to ask questions and assume patient care.
--- NOTE | 2020-10-13 18:45 | NUR ---
Problems reprioritized. Patient report given, questions answered & plan of care reviewed with Eden QUACH.
[2020-10-13 19:00] VITALS: BP 152/67
[2020-10-13] MEDS: ipratropium/albuterol 3ml nebule NEB PRN (19:11)
[2020-10-13] MEDS: HYDROcodone/acetaminophen 10/325mg tab PO PRN (19:41)
[2020-10-13] MEDS: insulin glargine (Lantus) pen - multi-dose SQ SCH (21:00)
[2020-10-13] MEDS: atorvastatin 10mg tablet PO SCH (21:41)
[2020-10-13] MEDS: baclofen 10mg tablet PO PRN (21:41)
[2020-10-14] VITALS (9 sets, daily range): BP systolic 114–169; BP diastolic 58–94
[2020-10-14] MEDS: gabapentin 300mg capsule PO SCH ×3 (00:05→16:00)
[2020-10-14] MEDS: normal saline 1000ml 1,000 ML IV SCH ×2 (00:08→16:15)
--- NOTE | 2020-10-14 06:23 | NUR ---
Problems reprioritized. Patient report given, questions answered & plan of care reviewed with Earlene QUACH.
--- NOTE | 2020-10-14 06:27 | NUR ---
Patient in room [facility] 349. I have received report from PHILOMENA Harmon and had the opportunity to ask questions and assume patient care.
[2020-10-14] MEDS: levoTHYROXINE 25mcg tablet PO SCH (07:07)
[2020-10-14] MEDS: HYDROcodone/acetaminophen 10/325mg tab PO PRN ×2 (07:07→20:00)
[2020-10-14] MEDS: docusate sod 100mg capsule PO SCH ×2 (07:07→20:00)
[2020-10-14] MEDS: pantoprazole 40mg Tablet.DR PO SCH (07:08)
[2020-10-14 07:14] LABS: BASOPHILS % (AUTO) 0.3 % (0-1); EOSINOPHILS # (AUTO) 0.2 X10'3 (0-0.9); EOSINOPHILS % (AUTO) 2.8 % (0-6); HEMOGLOBIN 11.9 g/dl (12.0-16.0); LYMPHOCYTES # (AUTO) 1.7 X10'3 (1.1-4.8); LYMPHOCYTES % (AUTO) 28.1 % (21-51); MEAN CORPUSCULAR HEMOGLOBIN 28.6 PG (27.0-31.0); MEAN CORPUSCULAR VOLUME 86.8 FL (78-98); MEAN PLATELET VOLUME 7.7 FL (7.4-10.4); MONOCYTES # (AUTO) 0.6 X10'3 (0-0.9); MONOCYTES % (AUTO) 9.1 % (2-12); NEUTROPHILS # (AUTO) 3.6 X10'3 (1.8-7.7); NEUTROPHILS % (AUTO) 59.7 % (42-75); PLATELET COUNT 242 X10'3 (140-440); RED BLOOD COUNT 4.15 X10'6 (4.20-5.60); RED CELL DISTRIBUTION WIDTH 14.6 % (11.5-14.5)
[2020-10-14] MEDS: loratadine 10mg tablet PO SCH (07:23)
[2020-10-14] MEDS: heparin, porcine 5000 units/ml vial SQ SCH ×2 (07:23→20:00)
[2020-10-14 07:54] LABS: ALBUMIN 3.1 G/DL (3.4-5.0); ANION GAP 8 (8-16); BLOOD UREA NITROGEN 12 MG/DL (7-18); BUN/CREATININE RATIO 16.9 (6.6-38.0); CALCIUM 8.2 MG/DL (8.5-10.1); CHLORIDE 110 MMOL/L (99-107); CREATININE 0.71 MG/DL (0.40-0.90); GLUCOSE 121 MG/DL (70-104); POTASSIUM 4.6 MMOL/L (3.5-5.1); SODIUM 144 MMOL/L (135-145); eGFR 86 ML/MIN
[2020-10-14] MEDS: ipratropium/albuterol 3ml nebule NEB PRN ×2 (08:58→18:47)
[2020-10-14] MEDS: budesonide 0.5mg/2ml UD nebule IH SCH ×2 (08:58→18:47)
[2020-10-14] MEDS ORDERED: metoclopramide 5 mg/ml inj IV ONE (12:20)
[2020-10-14] MEDS ORDERED: METO-292 PO (12:27)
[2020-10-14] MEDS ORDERED: HYDR-3965 PO (12:27)
--- NOTE | 2020-10-14 16:11 | NUR ---
Patient down to GI lab in wheelchair accompanied by PHILOMENA Smith
[2020-10-14] MEDS ORDERED: fentaNYL/PF 50MCG/1 ML 2ML syringe ONE (16:19)
[2020-10-14] MEDS ORDERED: LIDOcaine Viscous 15ml cup ONE (16:19)
[2020-10-14] MEDS ORDERED: MIDAZolam 1 MG/ML 5ML VIAL ONE (16:19)
--- NOTE | 2020-10-14 17:48 | NUR ---
Patient back to room 349B. 1 hour post procedure vitals initiated.
--- NOTE | 2020-10-14 18:19 | NUR ---
Problems reprioritized. Patient report given, questions answered & plan of care reviewed with PHILOMENA Arreguin.
== END 2020-10-14 20:30 | disposition home or self-care (01) | DRG 683 ==
LOC: ER 09:45 → ED HOLD 14:18 → SUR 3N 20:00
PROVIDERS: ADMIT Internal Medicine; ATTEND Internal Medicine
PROC: 5A09357 Assistance with Respiratory Ventilation, Less than 24 Consecutive Hours, Continuous Positive Airway Pressure (ICD-10-PCS; 2020-10-12)
PROC: 5A09357 Assistance with Respiratory Ventilation, Less than 24 Consecutive Hours, Continuous Positive Airway Pressure (ICD-10-PCS; 2020-10-13)
PROC: 0DJ08ZZ Inspection of Upper Intestinal Tract, Via Natural or Artificial Opening Endoscopic (ICD-10-PCS; principal; 2020-10-14)
PROC: 5A09357 Assistance with Respiratory Ventilation, Less than 24 Consecutive Hours, Continuous Positive Airway Pressure (ICD-10-PCS; 2020-10-14)
DX: N17.9 Acute kidney failure, unspecified (principal); Z68.43 Body mass index [BMI] 50.0-59.9, adult; E86.0 Dehydration; R10.30 Lower abdominal pain, unspecified; D86.9 Sarcoidosis, unspecified; E11.40 Type 2 diabetes mellitus with diabetic neuropathy, unspecified; E03.9 Hypothyroidism, unspecified; E66.01 Morbid (severe) obesity due to excess calories; E78.00 Pure hypercholesterolemia, unspecified; E78.5 Hyperlipidemia, unspecified; I10 Essential (primary) hypertension; G47.30 Sleep apnea, unspecified; K21.9 Gastro-esophageal reflux disease without esophagitis; I25.10 Atherosclerotic heart disease of native coronary artery without angina pectoris; Z20.822 Contact with and (suspected) exposure to COVID-19; Z60.2 Problems related to living alone; J44.9 Chronic obstructive pulmonary disease, unspecified; K43.9 Ventral hernia without obstruction or gangrene; Z79.4 Long term (current) use of insulin; Z82.49 Family history of ischemic heart disease and other diseases of the circulatory system; I25.2 Old myocardial infarction; Z83.3 Family history of diabetes mellitus; Z85.41 Personal history of malignant neoplasm of cervix uteri; Z86.73 Personal history of transient ischemic attack (TIA), and cerebral infarction without residual deficits; Z87.891 Personal history of nicotine dependence; Z90.5 Acquired absence of kidney; Z79.899 Other long term (current) drug therapy; Z88.6 Allergy status to analgesic agent; Z88.5 Allergy status to narcotic agent; Z88.8 Allergy status to other drugs, medicaments and biological substances; Z56.0 Unemployment, unspecified; Y93.89 Activity, other specified
CPT/HCPCS: 36415; 43235; 71045; 74176; 74250; 80048; 80053; 81001; 82948; 83036; 83605; 83690; 83735; 84145; 85025; 87040; 87081; 87635; 93005; 94640; 94660; 94760; 96365; 96366; 96375; 99152; 99285; A4620; C9803; G0378; J0696; J1644; J1815; J2250; J2405; J2765; J3010; J7030; J7040; J7626; Q9963